=== PATIENT | male | born 1955 | race Asian ===

== ENCOUNTER 2020-04-22 14:50 | Emergency (ER) | payer OTHER ==
[~2020-04-22] VITALS: Ht 177.8 cm; Wt 75.0 kg
[2020-04-22 15:00] VITALS: BP 126/78
[2020-04-22] MEDS ORDERED: ONDANSETRON HCL 4MG/2ML INJ IV STA (15:34)
[2020-04-22] MEDS ORDERED: SODIUM CHLORIDE 0.9% 1,000 ML IV ONE (15:45)
[2020-04-22] MEDS ORDERED: MECLIZINE 25MG TABLET PO ONE (15:45)
[2020-04-22 16:32] LABS: CHLORIDE 105 mEq/L (98-107)
[2020-04-22 16:41] LABS: BASOPHILS % 1.2 % (0.0-2.0); HEMATOCRIT. 43.1 % (42.0-52.0); HEMOGLOBIN. 14.8 g/dL (14.0-18.0); LYMPHOCYTES % 22.7 % (20.0-50.0); MEAN CORPUSCULAR VOLUME 95.6 fL (80.0-94.0); MEAN PLATELET VOLUME 7.7 fl (7.4-10.4); NEUTROPHILS % 67.1 % (40.0-76.0); PLATELET 273 x1000/uL (130-400); RED CELL DISTRIBUTION WIDTH 12.9 % (11.6-14.6)
== END 2020-04-22 18:29 | disposition home or self-care (01) ==
LOC: ER 15:24
DX: H81.10 Benign paroxysmal vertigo, unspecified ear (principal); I10 Essential (primary) hypertension; R00.1 Bradycardia, unspecified
CPT/HCPCS: 36415; 80053; 85025; 93005; 96361; 96374; 99284; J2405; J7030; J8597